=== PATIENT | male | born 1975 | race African-American/Black ===

== ENCOUNTER 2016-09-04 07:36 | Emergency (ER) | payer OTHER | END 2016-09-04 10:13 | disposition other institution (70) | LOC: ED 07:36 | DX: Z02.89 Encounter for other administrative examinations (principal) ==

== ENCOUNTER 2016-09-04 07:36 | Emergency (ER) | payer OTHER ==
[2016-09-04 10:13] VITALS: BP 132/74
== END 2016-09-04 10:13 | disposition other institution (70) ==
LOC: ED 07:36
DX: S82.891A Other fracture of right lower leg, initial encounter for closed fracture (principal); W23.0XXA Caught, crushed, jammed, or pinched between moving objects, initial encounter; Y93.89 Activity, other specified; Y92.89 Other specified places as the place of occurrence of the external cause; Y99.8 Other external cause status